=== PATIENT | female | born 1965 | race Caucasian/White ===

== ENCOUNTER → 2018-07-08 | Outpatient (REF) ==
--- NOTE | 2018-07-09 02:23 | REP ---
Clinical: Pain. Technique: AP, lateral, bilateral oblique and sunrise views of the right knee. Findings: Evidence for prior knee replacement. Normal appearance in positioning to the femoral and tibial components noted. The joint space appears intact. Associated postsurgical changes involving the posterior aspect of the patella identified. No acute fracture dislocation. No obvious periarticular calcifications or loose bodies. No definite effusion. Impression: Evidence for prior arthroplasty. No obvious acute process identified. Electronically Signed by Guy Quinones MD 07/09/2018 02:14 A
== END ==
LOC: M SMT 14:52
PROVIDERS: ATTEND Internal Medicine
DX: Z00.00 Encounter for general adult medical examination without abnormal findings (principal)